=== PATIENT | male | born 1940 | race Caucasian/White ===

== ENCOUNTER 2018-09-14 05:27 | Inpatient (IN) | payer OTHER ==
[2018-09-09 10:14] LABS: BASOPHILS # (AUTO) 0.1 X10'3 (0-0.2); BASOPHILS % (AUTO) 1.9 % (0-1); EOSINOPHILS # (AUTO) 0.2 X10'3 (0-0.9); LYMPHOCYTES % (AUTO) 18.3 % (21-51); MEAN CORPUSCULAR HEMOGLOBIN 29.5 PG (27.0-31.0); MEAN CORPUSCULAR HGB CONC 33.8 g/dL (33.0-36.5); MEAN CORPUSCULAR VOLUME 87.2 FL (78-98); MEAN PLATELET VOLUME 10.5 FL (7.4-10.4); MONOCYTES # (AUTO) 0.5 X10'3 (0-0.9); MONOCYTES % (AUTO) 9.1 % (2-12); NEUTROPHILS # (AUTO) 3.7 X10'3 (1.8-7.7); NEUTROPHILS % (AUTO) 66.7 % (42-75); PRE OP HEMATOCRIT 44.3 % (42.0-52.0); PRE OP PLATELET COUNT 192 X10'3 (140-440); RED BLOOD COUNT 5.08 X10'6 (4.70-6.10); RED CELL DISTRIBUTION WIDTH 13.8 % (11.5-14.5)
[2018-09-09 10:25] LABS: ALBUMIN 3.7 G/DL (3.4-5.0); ALKALINE PHOSPHATASE 88 IU/L (46-116); BLOOD UREA NITROGEN 7 MG/DL (7-18); CALCIUM 8.3 MG/DL (8.5-10.1); CHLORIDE 103 MMOL/L (99-107); PRE OP ALT 19 U/L (30-65); PRE OP ANION GAP 4 (8-16); PRE OP AST 11 U/L (10-37); PRE OP BILIRUB, TOTAL 0.6 MG/DL (0.0-1.0); PRE OP GLUCOSE 101 MG/DL (70-104); PRE OP POTASSIUM 4.3 MMOL/L (3.4-5.1); PRE OP SODIUM 136 MMOL/L (135-145); TOTAL CARBON DIOXIDE 28.6 MMOL/L (24-32); TOTAL PROTEIN 7.5 G/DL (6.4-8.2); eGFR 73 ML/MIN
[2018-09-09 11:12] LABS: PLATELET ESTIMATE NORMAL
[2018-09-09 11:15] LABS: LARGE PLATELETS FEW
[2018-09-11 15:44] VITALS: BP 123/66
[~2018-09-14] VITALS: Ht 180.3 cm; Wt 71.1 kg
[2018-09-14] VITALS (19 sets, daily range): BP systolic 113–144; BP diastolic 53–77
[~2018-09-14 05:27] MED LIST: ATOR40TA PO; HYDR12.55 PO; OMEP20TA5 PO; TIMO5SOL8 EACHEYE; ringers solution, lacted 1,000 ML IV SCH
[2018-09-14] MEDS ORDERED: famotidine 20mg tablet PO ONE (05:30)
[2018-09-14] MEDS ORDERED: tranexamic acid inj. 1,000 MG in normal saline 100 ML IV ONE (05:30)
[2018-09-14] MEDS ORDERED: celeCOXIB 100mg capsule PO ONE (05:30)
[2018-09-14] MEDS ORDERED: acetaminophen 325mg tablet PO ONE (05:30)
[2018-09-14] MEDS ORDERED: vancomycin inj 1,500 MG in normal saline 300ml IV soln IV ONE (05:30)
[2018-09-14] MEDS ORDERED: oxyCODONE SR 10mg (sust. release) tab -2 tabs (20mg) PO ONE (05:30)
[2018-09-14] MEDS ORDERED: metoclopramide 5 mg/ml inj IV ONE (05:30)
[2018-09-14] MEDS ORDERED: cefazolin/dext.iso 2gm/100 ML IV ONE (05:30)
[2018-09-14] MEDS ORDERED: gabapentin 300mg capsule PO ONE (05:30)
[2018-09-14] MEDS ORDERED: LIDOcaine 1% (10mg/ml) 2ml vial ONE (05:49)
[2018-09-14] MEDS ORDERED: HYDROmorphone inj. 0.5 MG/0.5 ML DISP.SYRIN IV PRN (06:15)
[2018-09-14] MEDS ORDERED: magnesium hydroxide 30ml (MOM) UD suspension PO PRN (06:15)
[2018-09-14] MEDS ORDERED: acetaminophen 325mg tablet PO PRN (06:15)
[2018-09-14] MEDS ORDERED: oxyCODONE SR 10mg (sust. release) tab PO ONE (06:15)
[2018-09-14] MEDS ORDERED: diphenhydrAMINE 25mg capsule PO PRN ×2 (06:15)
[2018-09-14] MEDS ORDERED: HYDROmorphone 1 mg/ml syringe IV PRN (06:15)
[2018-09-14] MEDS ORDERED: bisacodyl 10mg suppository rectal RC PRN (06:15)
[2018-09-14] MEDS ORDERED: ketorolac trometh. 30mg/ml inj. ONE (06:38)
[2018-09-14] MEDS ORDERED: epiNEPHrine 1 mg/ml inj ONE (06:38)
[2018-09-14] MEDS ORDERED: cloNIDine hcl/PF 100mcg/ml inj ONE ×2 (06:38→06:59)
[2018-09-14] MEDS ORDERED: ceFAZolin 1000mg inj ONE (06:38)
[2018-09-14] MEDS ORDERED: vancomycin 1,000mg inj ONE (06:38)
[2018-09-14] MEDS ORDERED: ROPIVAcaine 0.5% (5mg/ml) 30ml vial ONE ×2 (06:39→06:59)
[2018-09-14] MEDS ORDERED: tetracaine 1% (10mg/ml) pres. free inj. ONE (06:59)
[2018-09-14] MEDS ORDERED: fentaNYL/PF 50MCG/1 ML 2ML syringe ONE (07:01)
[2018-09-14] MEDS ORDERED: morphine /PF 1mg/ml 10ml inj. ONE (07:01)
[2018-09-14] MEDS ORDERED: midazolam 2 mg/2 ml injection ONE (07:01)
[2018-09-14] MEDS ORDERED: ringers solution, lacted 1,000 ML IV SCH (07:36)
[2018-09-14] MEDS ORDERED: meperidine/PF 25mg/ml syringe IV PRN ×2 (07:40)
[2018-09-14] MEDS ORDERED: enalaprilat dihydrate 2.5mg/2ml vial IV PRN (07:40)
[2018-09-14] MEDS ORDERED: hydrALAZINE 20mg/ml inj. IV PRN (07:40)
[2018-09-14] MEDS ORDERED: morphine 4 MG/ML inj SYRINge IV PRN ×2 (07:40)
[2018-09-14] MEDS ORDERED: diphenhydrAMINE 50 mg/ml inj IV PRN (07:40)
[2018-09-14] MEDS ORDERED: ondansetron/PF 4mg/2ml inj IV PRN ×2 (07:40)
[2018-09-14] MEDS ORDERED: propofol inj 40 ML IV ONE (08:00)
[2018-09-14] MEDS ORDERED: dexamethasone sod phosphate 4mg/ml inj. ONE (08:00)
--- NOTE | 2018-09-14 08:54 | NUR ---
Received from OR via BED, accompanied by Anesthesiologist DR PARIKH and report given by Anesthesiologist. PT DROWSY, DENIES PAIN, RIGHT KNEE W/DRSG, LEG WRAP, ICE PACK, ADDUCTOR CANAL CATHETER, CDI, PILLOW UNDER RIGHT ANKLE. Addendum: 09/14/18 at 0931 by Asuncion Colunga RN Amended: Links added.
[2018-09-14] MEDS: ROPIVAcaine 0.2%/PF PAIN PUMP 400 ML IJ SCH ×2 (09:32→23:52)
--- NOTE | 2018-09-14 10:24 | NUR ---
Report called to receiving nurse. Transferred IN STABLE CONDITION via BED, 1 BAG OF PERSONAL Belongings SENT W/PT TO ROOM 4023B, NURSES AID AT BEDSIDE TO RECEIVE PT, BLL, CALL LIGHT GIVEN, SIDE RAILS UP X 2, PTS PRESENT. Special Issues communicated to receiving nurse. YES. Addendum: 09/14/18 at 1039 by Asuncion Colunga RN Amended: Links added.
--- NOTE | 2018-09-14 11:00 | NUR ---
Patient in room [facility]TH[facility] 4023. I have received report from MELODIE QUINTANILLA and had the opportunity to ask questions and assume patient care.
[2018-09-14] MEDS: gabapentin 300mg capsule PO SCH ×3 (11:36→20:29)
[2018-09-14] MEDS: aspirin 325mg tablet PO SCH (11:36)
[2018-09-14] MEDS: multivitamins, therapeutics tablet PO SCH (11:37)
[2018-09-14] MEDS: ascorbic acid 500mg tablet PO SCH ×2 (11:37→20:29)
[2018-09-14] MEDS: timolol XE 0.5% ophth GEL forming sol 5ml EACHEYE SCH (11:37)
[2018-09-14] MEDS ORDERED: tranexamic acid inj. 710 MG in normal saline 100ml IV soln 100 ML IV ONE (12:00)
[2018-09-14] MEDS: potassium cl 20mEq in 1/2 NS 1,000 ML IV SCH ×3 (12:07→21:51)
[2018-09-14] MEDS: ondansetron/PF 4mg/2ml inj IV PRN (13:23)
[2018-09-14] MEDS: ceFAZolin 1GM/D5W- ADD-VANTAGE 50 ML IV SCH ×2 (16:12→23:42)
--- NOTE | 2018-09-14 18:10 | NUR ---
Received report from Millie QUINTANILLA, assumed care of patient with Madison QUINTANILLA.
--- NOTE | 2018-09-14 18:10 | NUR ---
Problems reprioritized. Patient report given, questions answered & plan of care reviewed with ADRIANA QUINTANILLA AND LUIS QUINTANILLA.
--- NOTE | 2018-09-14 18:15 | NUR ---
Patient in room [facility]TH[facility] 4023. I have received report from SOCORRO Pinto and had the opportunity to ask questions and assume patient care.
[2018-09-14] MEDS: sennosides 8.6mg tablet PO SCH (20:29)
[2018-09-15 02:00] VITALS: BP 116/52
[2018-09-15] MEDS: oxyCODONE/APAP 10/325mg tablet PO PRN ×3 (05:28→20:35)
[2018-09-15] MEDS: potassium cl 20mEq in 1/2 NS 1,000 ML IV SCH ×3 (05:43→23:29)
[2018-09-15 05:47] LABS: BASOPHILS % (AUTO) 0.4 % (0-1); EOSINOPHILS # (AUTO) 0.1 X10'3 (0-0.9); EOSINOPHILS % (AUTO) 0.6 % (0-6); HEMOGLOBIN 12.6 g/dl (14.0-17.9); LYMPHOCYTES % (AUTO) 10.3 % (21-51); MEAN CORPUSCULAR HEMOGLOBIN 29.4 PG (27.0-31.0); MEAN CORPUSCULAR HGB CONC 34.1 g/dL (33.0-36.5); MEAN CORPUSCULAR VOLUME 86.1 FL (78-98); MONOCYTES # (AUTO) 0.8 X10'3 (0-0.9); MONOCYTES % (AUTO) 8.2 % (2-12); NEUTROPHILS # (AUTO) 7.6 X10'3 (1.8-7.7); NEUTROPHILS % (AUTO) 80.5 % (42-75); PLATELET COUNT 159 X10'3 (140-440); RED CELL DISTRIBUTION WIDTH 13.4 % (11.5-14.5); WHITE BLOOD COUNT 9.5 X10'3 (4.5-11.0)
[2018-09-15 06:00] VITALS: BP 111/55
[2018-09-15 06:03] LABS: ANION GAP 8 (8-16); CHLORIDE 100 MMOL/L (99-107); POTASSIUM 4.1 MMOL/L (3.5-5.1); SODIUM 132 MMOL/L (135-145); TOTAL CARBON DIOXIDE 24.4 MMOL/L (24-32)
--- NOTE | 2018-09-15 06:23 | NUR ---
Gave report to Deysi QUINTANILLA, with Madison QUINTANILLA.
[2018-09-15] MEDS: HYDROchlorothiazide 12.5mg capsule PO SCH (08:00)
[2018-09-15] MEDS: gabapentin 300mg capsule PO SCH ×3 (08:34→20:34)
[2018-09-15] MEDS: multivitamins, therapeutics tablet PO SCH (08:34)
[2018-09-15] MEDS: pantoprazole 40mg Tablet.DR PO SCH (08:34)
[2018-09-15] MEDS: atorvastatin 20mg tablet PO SCH (08:35)
[2018-09-15] MEDS: ascorbic acid 500mg tablet PO SCH ×2 (08:35→20:35)
[2018-09-15] MEDS: timolol XE 0.5% ophth GEL forming sol 5ml EACHEYE SCH (08:35)
[2018-09-15] MEDS: aspirin 325mg tablet PO SCH (08:35)
[2018-09-15] MEDS: ondansetron/PF 4mg/2ml inj IV PRN (08:35)
[2018-09-15 10:00] VITALS: BP 107/55
--- NOTE | 2018-09-15 12:01 | NUR ---
Joint replacement consult: Pt seen by NICOLE for written/verbal high protein ed. RD reviewed high protein needs for wound healing, immune strength, high protein foods, and protein supplementation options. RD contact information provided in case of further questions. Pt agrees to cottage cheese w/ fruit at breakfasts as well as lunch today; dietary notified. Pt reports usually small eater and has small meals at home; encouraged ONS use at home. Addendum: 09/15/18 at [address] Amended: Links added.
[2018-09-15 18:00] VITALS: BP 110/52
--- NOTE | 2018-09-15 18:20 | NUR ---
Patient in room ORTH[facility] 4023. I have received report from SOCORRO Jo and had the opportunity to ask questions and assume patient care.
[2018-09-15] MEDS: celeCOXIB 100mg capsule PO SCH (20:35)
[2018-09-15] MEDS: sennosides 8.6mg tablet PO SCH (20:35)
[2018-09-15] MEDS: ROPIVAcaine 0.2%/PF PAIN PUMP 400 ML IJ SCH (21:49)
[2018-09-15 22:00] VITALS: BP 113/71
[2018-09-16] MEDS: oxyCODONE/APAP 10/325mg tablet PO PRN ×3 (03:03→13:29)
[2018-09-16] MEDS ORDERED: ASPI-1 PO (05:43)
[2018-09-16 05:51] LABS: BASOPHILS % (AUTO) 0.6 % (0-1); EOSINOPHILS # (AUTO) 0.2 X10'3 (0-0.9); EOSINOPHILS % (AUTO) 2.6 % (0-6); HEMATOCRIT 34.3 % (42.0-52.0); HEMOGLOBIN 11.7 g/dl (14.0-17.9); LYMPHOCYTES # (AUTO) 1.1 X10'3 (1.1-4.8); LYMPHOCYTES % (AUTO) 15.1 % (21-51); MEAN CORPUSCULAR HEMOGLOBIN 29.8 PG (27.0-31.0); MEAN CORPUSCULAR HGB CONC 34.2 g/dL (33.0-36.5); MEAN CORPUSCULAR VOLUME 87.3 FL (78-98); MEAN PLATELET VOLUME 10.4 FL (7.4-10.4); MONOCYTES # (AUTO) 0.9 X10'3 (0-0.9); MONOCYTES % (AUTO) 12.5 % (2-12); NEUTROPHILS # (AUTO) 4.9 X10'3 (1.8-7.7); NEUTROPHILS % (AUTO) 69.2 % (42-75); PLATELET COUNT 126 X10'3 (140-440); RED BLOOD COUNT 3.93 X10'6 (4.70-6.10); RED CELL DISTRIBUTION WIDTH 13.6 % (11.5-14.5)
[2018-09-16 06:00] VITALS: BP 126/62
--- NOTE | 2018-09-16 06:28 | NUR ---
Problems reprioritized. Patient report given, questions answered & plan of care reviewed with SOCORRO Jo.
[2018-09-16] MEDS: aspirin 325mg tablet PO SCH (07:49)
[2018-09-16] MEDS: celeCOXIB 100mg capsule PO SCH (07:49)
[2018-09-16] MEDS: gabapentin 300mg capsule PO SCH ×2 (07:50→13:28)
[2018-09-16] MEDS: ascorbic acid 500mg tablet PO SCH (07:50)
[2018-09-16] MEDS: atorvastatin 20mg tablet PO SCH (07:50)
[2018-09-16] MEDS: timolol XE 0.5% ophth GEL forming sol 5ml EACHEYE SCH (07:50)
[2018-09-16] MEDS: pantoprazole 40mg Tablet.DR PO SCH (07:50)
[2018-09-16] MEDS: HYDROchlorothiazide 12.5mg capsule PO SCH (08:00)
[2018-09-16] MEDS: multivitamins, therapeutics tablet PO SCH (08:11)
[2018-09-16 10:00] VITALS: BP 132/55
== END 2018-09-16 14:17 | disposition home or self-care (01) | DRG 470 ==
LOC: PAS IN 05:27 → EDSTATUS 07:30 → ORTHO 4S 10:30
PROVIDERS: ADMIT Orthopaedic Surgery; ATTEND Orthopaedic Surgery
PROC: 3E0T3BZ Introduction of Anesthetic Agent into Peripheral Nerves and Plexi, Percutaneous Approach (ICD-10-PCS; 2018-09-14)
PROC: 0SRC0J9 Replacement of Right Knee Joint with Synthetic Substitute, Cemented, Open Approach (ICD-10-PCS; principal; 2018-09-14 06:52)
DX: M17.11 Unilateral primary osteoarthritis, right knee (principal); D62 Acute posthemorrhagic anemia; M25.561 Pain in right knee; E78.5 Hyperlipidemia, unspecified; I10 Essential (primary) hypertension; M21.161 Varus deformity, not elsewhere classified, right knee; K21.9 Gastro-esophageal reflux disease without esophagitis; M25.761 Osteophyte, right knee; H91.90 Unspecified hearing loss, unspecified ear; H40.9 Unspecified glaucoma; Z79.82 Long term (current) use of aspirin; Z79.899 Other long term (current) drug therapy; Z88.8 Allergy status to other drugs, medicaments and biological substances
CPT/HCPCS: 36415; 71046; 73560; 80051; 80053; 82948; 85025; 85610; 85730; 86885; 86900; 86901; 87081; 97110; 97116; 97161; 97530; A4215; A4618; A6454; A7000; C1713; C1758; C1776; G0378; J0171; J0690; J0735; J1100; J1885; J2001; J2250; J2270; J2405; J2704; J2765; J2795; J3010; J3370; J3480; J7120